=== PATIENT | female | born 1965 | race Caucasian/White ===

== ENCOUNTER → 2020-10-21 | Outpatient (CLI) | payer BC ==
--- NOTE | 2020-10-27 06:42 | MR ---
EXAMINATION TYPE: MR liver wo/w con DATE OF EXAM: 10/21/2020 COMPARISON: Ultrasound 10/05/2020 HISTORY: Liver Lesion CONTRAST: Standard multiplanar, multisequence MRI departmental protocol utilizing 7 mL intravenous Gadavist katherine olinium contrast. Liver has normal size. Gallbladder appears normal. Spleen is intact. There is no evidence of a pancre atic mass. There is no adrenal mass. Kidneys have normal size and contour. There is no hydronephrosis. The bile ducts are not dilated. Pancreatic duct appears normal. There is no ascites. There is no evidence of r etroperitoneal adenopathy. Lung bases are clear. There is no pleural effusion. There is rounded 3 cm mass with slight increased signal on the T2 images in the inferior anterior rig ht lobe of the liver. There is a second smaller lesion that measures 2 cm in the inferior right lobe of the liver. The larger lesion shows fairly uniform dense enhancement on the delayed images and cons istent with hemangioma. The smaller lesion also has enhancement with slight increased enhancement on the delayed imaging. This is also consistent with hemangioma. The remainder of the liver appears fair ly normal. The bile ducts are not dilated. IMPRESSION: There are 2 liver lesions which show features of hemangioma. No dilated ducts.
== END | disposition home or self-care (01) ==
LOC: RADMRIMAIN 11:27
PROVIDERS: ATTEND Internal Medicine Gastroenterology
DX: D18.03 Hemangioma of intra-abdominal structures (principal); K76.9 Liver disease, unspecified
CPT/HCPCS: 74183